=== PATIENT | female | born 1975 | race Native Hawaiian/Other Pacific Islander ===

== ENCOUNTER 2017-12-28 13:00 | Oncology outpatient (ONC) | payer OTHER, SELFPAY ==
[2017-09-15 13:07] VITALS: BP 147/97; PULSE 95; RESP 18; TEMP 36.8
[2017-09-15] MEDS: LEUPROLIDE 3.75 MG IM (13:16)
[2017-10-20] MEDS: LEUPROLIDE 3.75 MG IM (11:04)
[2017-10-20 11:05] VITALS: BP 106/76; PULSE 73; RESP 16; TEMP 36.9; O2SAT 97
[2017-11-16] MEDS: LEUPROLIDE 3.75 MG IM (11:29)
[2017-11-16 11:35] VITALS: BP 149/89; PULSE 74; RESP 14; TEMP 36.8; O2SAT 100
--- NOTE | 2017-11-16 11:41 | PC.NURSE ---
Sylvia comes in for Lupron monthly. Denies any problems. Injection tolerated without any ill effects.
[2017-12-28] MEDS: LEUPROLIDE 3.75 MG IM (13:36)
== END 2017-12-29 12:00 ==
PROVIDERS: PCP Nurse Practitioner Family
DX: N80.9 Endometriosis, unspecified (principal)
CPT/HCPCS: 96372; J1950

== ENCOUNTER → 2018-01-03 09:36 | Outpatient (CLI) | payer OTHER, SELFPAY | DX: Z13.820 Encounter for screening for osteoporosis (principal); M85.851 Other specified disorders of bone density and structure, right thigh | CPT/HCPCS: 77080 ==

== ENCOUNTER 2018-01-19 08:54 | Oncology outpatient (ONC) | payer OTHER, SELFPAY ==
[2018-01-19 09:21] VITALS: BP 104/69; PULSE 71; RESP 16; TEMP 36.8; O2SAT 96
[2018-01-19] MEDS: LEUPROLIDE 3.75 MG IM (09:26)
== END 2018-02-01 13:25 ==
LOC: ONC 08:54
DX: N80.9 Endometriosis, unspecified (principal)
CPT/HCPCS: 96372; J1950

== ENCOUNTER 2018-03-01 14:55 | Emergency (ER) | payer OTHER, SELFPAY ==
[2018-03-01 15:10] VITALS: BP 126/85; PULSE 90; RESP 16; TEMP 36.9; O2SAT 98; BMI 21.1
[2018-03-01 15:43] LABS: INR 0.9 (0.9-1.3); Prothrombin Time 10.6 SECONDS (10.1-12.7)
--- NOTE | 2018-03-01 15:44 | ED.ABDPAIN ---
HPI - Abdominal Pain General Chief Complaint: Abdominal Pain Stated Complaint: RT LOWER ABD PAIN Time Seen by Provider: 03/01/18 15:42 Source: patient Mode of arrival: ambulatory Limitations: no limitations History of Present Illness HPI narrative: This 42-year-old female comes to ED due to worsening right-sided abdominal pain. She states she woke up this morning with pain and has progressively worsened throughout the day. She describes it as sharp, constant, worse with being up and walking, better with being still and bending forward. She denies any nausea or vomiting. She denies any urinary symptoms or hematuria. She had a normal bowel movement this morning. She denies any fever, chills, sweats. She denies any chest pain, dyspnea, recent illness or upper respiratory symptoms. No known exposures. She has been eating and drinking normally today. She does have a history of kidney stones but this does not feel typical Related Data Home Medications Medication Instructions Recorded Confirmed cetirizine 5 mg PO QDAY PRN #0 08/17/12 03/01/18 leuprolide [Lupron Depot] 3.75 mg IM QMONTH 03/01/18 03/01/18 zolpidem 5 mg PO BEDTIME PRN 03/01/18 03/01/18 Previous Rx's Medication Instructions Recorded alendronate 70 mg tablet 70 mg PO QWEEK #12 tab 01/18/18 sulfamethoxazole-trimethoprim 1 tab PO Q12H #14 tab 03/01/18 [Bactrim DS] Allergies Allergy/AdvReac Type Severity Reaction Status Date / Time Penicillins [PENICILLINS] Allergy Severe HIVES/ANAPH Verified 03/01/18 16:48 YLAXIS Review of Systems Review of Systems All systems reviewed & are unremarkable except as noted in HPI and below PFSH Medical History Endometriosis determined by laparoscopy (Chronic) Seasonal allergies (Chronic) Social History household members: spouse Smoking Status: Current some day smoker Comment: social EtOH and tobacco, no street drugs Exam Narrative Exam Narrative: GENERAL APPEARANCE: Patient lying supine, appears a bit uncomfortable but in NAD HEENT: PERRL, EOMI, no scleral icterus NECK: Supple LUNGS: Clear to auscultation bilaterally. HEART: Rate and rhythm regular, normal S1 and S2, no S3 or S4. ABDOMEN: Soft, nondistended, bowel sounds present x 4 quadrants, no masses palpable, no hepatosplenomegaly. tender over the right mid to lower quadrants including McBurney's point and right lateral pelvis. Less tender over the right upper quadrant. Also right CVAT. No left-sided tenderness. No guarding or rebound. EXTREMITIES: No edema, no cyanosis DERMATOLOGIC: No jaundice or exanthem NEUROLOGIC: Alert and oriented with normal speech and coordination : normal external genitalia, moderate right adenexal region tenderness, no palable ovarian mass, ligaments/vasculature on that side slightly more prominant than L. on palpation, no CMT Initial Vital Signs Initial Vital Signs: Vital Signs Temperature 98.5 F 03/01/18 15:10 Pulse Rate 90 03/01/18 15:10 Respiratory Rate 16 03/01/18 15:10 Blood Pressure 126/85 03/01/18 15:10 Pulse Oximetry 98 03/01/18 15:10 Course Additional Information: the patient is feeling significantly improved in terms of her pain, able to ambulate. Reviewed lab work and imaging studies which do not show acute findings. Advised follow-up probable liver hemangioma. Advised that she could have type of pelvic congestion syndrome although sudden onset of her symptoms are not quite typical for this. I advised her that she needs to return if any acutely worsening pain or new symptoms such as vomiting or fever, and she is agreeable. Also advised following up with PCP tomorrow so that we can get serial examinations, and she is agreeable. Orders Ordered: ED Orders 03/01/18 15:17 Complete Blood Count AUTO DIFF Stat Comprehensive Metabolic Panel Stat Lipase Stat Partial Thromboplastin Time Stat Prothrombin Time INR Stat 03/01/18 15:20 Urine Culture Stat Urine Microscopic Stat 03/01/18 15:57 CT abdomen pelvis w con Stat 03/01/18 16:34 C-Reactive Protein Quant Stat Lactate (Lactic Acid) Stat Discontinued Medications Acetaminophen (Tylenol) 650 mg PO Q4HR PRN PRN Reason: As Needed for Fever/Mild Pain Last Admin: 03/01/18 16:09 Dose: 650 mg Sodium Chloride (Normal Saline 0.9%) 1,000 mls @ 1,000 mls/hr IV BOLUS ONE Stop: 03/01/18 16:56 Last Infusion: 03/01/18 17:05 Dose: 0 mls/hr Admin: 03/01/18 16:09 Dose: 1,000 mls/hr Ketorolac Tromethamine (Toradol) 15 mg IV NOW ONE Stop: 03/01/18 16:37 Last Admin: 03/01/18 16:49 Dose: 15 mg Morphine Sulfate (Morphine) 4 mg IV NOW ONE Stop: 03/01/18 16:37 Last Admin: 03/01/18 16:49 Dose: 4 mg Trimethoprim/Sulfamethoxazole (Bactrim Ds) 1 tab PO NOW ONE Stop: 03/01/18 17:53 Last Admin: 03/01/18 18:16 Dose: 1 tab Vital Signs - 8 hr 03/01/18 15:10 03/01/18 17:56 Temperature 98.5 F 97.9 F Pulse Rate 90 71 Respiratory Rate 16 18 Blood Pressure 126/85 Blood Pressure [Right Arm] 116/69 Pulse Oximetry 98 99 MDM - Abdominal Pain Lab Data Result diagrams: 03/01/18 15:17 03/01/18 15:17 Lab Results 03/01/18 03/01/18 03/01/18 Range/Units 15:17 15:17 15:17 WBC 15.0 H (4.5-11.0) X10^3/uL RBC 4.17 (4.0-5.2) X10^6/uL Hgb 13.5 (12.0-16.0) g/dL Hct 40.3 (36-46) % MCV 96.6 (80-100) fL MCH 32.3 (26-34) PG MCHC 33.5 (30-36) % RDW 13.3 (11.6-14.8) % Plt Count 316 (150-400) X10^3/uL Neut % (Auto) 65.8 (50-75) % Lymph % (Auto) 21.8 L (25-40) % [place]ata[place]oula % (Auto) 9.5 (3-14) % Eos % (Auto) 1.9 L (2-4) % Baso % (Auto) 1.0 (0-2) % Neut # (Auto) 9900 H (0327-1837) /uL PT 10.6 (10.1-12.7) SECONDS INR 0.9 (0.9-1.3) APTT 36 (26.4-36.2) SECONDS Sodium 143 (137-145) mmol/L Potassium 4.0 (3.4-5.1) mmol/L Chloride 105 (98-107) mmol/L Carbon Dioxide 26 (22-32) mmol/L BUN 18 H (7-17) mg/dL Creatinine 0.90 (0.52-1.04) mg/dL Estimated GFR > 60.0 (>60) mL/min BUN/Creatinine Ratio 20.0 (6-22) Glucose 87 (70-100) mg/dL Lactate (0.7-2.1) mmol/L Calcium 9.3 (8.4-10.2) mg/dL Total Bilirubin 0.4 (0.2-1.3) mg/dL AST 28 (14-36) IU/L ALT 27 (9-52) IU/L Alkaline Phosphatase 50 (38-126) U/L C-Reactive Protein (<1.0) mg/dL Total Protein 7.5 (6.3-8.2) g/dL Albumin 4.5 (3.5-5.0) g/dL Globulin 3.0 (1.7-4.1) g/dL Albumin/Globulin Ratio 1.5 (1.0-2.8) Lipase 52 (23-300) U/L Urine RBC (0-5/HPF) Urine WBC (0-5/HPF) Ur Squamous Epith Cells Amorphous Sediment Urine Bacteria (None) Urine Mucus (Negative) Ur Culture Indicated? Micro UA Comment 03/01/18 03/01/18 03/01/18 Range/Units 15:20 16:34 16:34 WBC (4.5-11.0) X10^3/uL RBC (4.0-5.2) X10^6/uL Hgb (12.0-16.0) g/dL Hct (36-46) % MCV (80-100) fL MCH (26-34) PG MCHC (30-36) % RDW (11.6-14.8) % Plt Count (150-400) X10^3/uL Neut % (Auto) (50-75) % Lymph % (Auto) (25-40) % [place]oula % (Auto) (3-14) % Eos % (Auto) (2-4) % Baso % (Auto) (0-2) % Neut # (Auto) (2260-2902) /uL PT (10.1-12.7) SECONDS INR (0.9-1.3) APTT (26.4-36.2) SECONDS Sodium (137-145) mmol/L Potassium (3.4-5.1) mmol/L Chloride (98-107) mmol/L Carbon Dioxide (22-32) mmol/L BUN (7-17) mg/dL Creatinine (0.52-1.04) mg/dL Estimated GFR (>60) mL/min BUN/Creatinine Ratio (6-22) Glucose (70-100) mg/dL Lactate 0.5 L (0.7-2.1) mmol/L Calcium (8.4-10.2) mg/dL Total Bilirubin (0.2-1.3) mg/dL AST (14-36) IU/L ALT (9-52) IU/L Alkaline Phosphatase (38-126) U/L C-Reactive Protein 0.7 (<1.0) mg/dL Total Protein (6.3-8.2) g/dL Albumin (3.5-5.0) g/dL Globulin (1.7-4.1) g/dL Albumin/Globulin Ratio (1.0-2.8) Lipase (23-300) U/L Urine RBC 1-5/hpf (0-5/HPF) Urine WBC 5-10/hpf H (0-5/HPF) Ur Squamous Epith Cells 1-5 /hpf Amorphous Sediment 1+ Urine Bacteria Few (2-10) H (None) Urine Mucus 2+ H (Negative) Ur Culture Indicated? Specimen cultured Micro UA Comment Not Reportable Point of care testing: Point of Care Testing Test Results Negative Urine Dip Bedside Urine Glucose Negative Bedside Urine Bilirubin - Negative Bedside Urine Ketone - Negative Urine Specific Ma[place] 1.030 Bedside Urine Occult Blood +++ Bedside Urine pH 6.0 Bedside Urine Protein - Negative Bedside Urine Urobilinogen - Negative Bedside Urine Nitrite - Negative Bedside Urine Leukocytes - Negative Esterase Imaging Data CT scan - abdomen: Radiologist's impression: [address] [address] [address] Scan Report Signed Patient: Sylvia Larson FMR#: [id number] : 1975Acct:[id number] Age/Sex: 42 / FDate of Service: 03/01/18 Loc: ED Accession Number: [id number] Procedure: CT abdomen pelvis w con Ordering Provider: Kimberly Mitchell P.A-C PROCEDURE: CT ABDOMEN PELVIS W CON INDICATIONS: R. flank and R. side pain TECHNIQUE: After the administration of oral and intravenous contrast, 5 mm thick sections acquired from the diaphragms to the symphysis. 5 mm thick coronal and sagittal reformats were performed. For radiation dose reduction, the following was used: automated exposure control, adjustment of mA and/or kV according to patient size. COMPARISON: None. FINDINGS: Image quality: Diagnostic. ABDOMEN: Lung bases: Lung bases are clear. Heart size is normal. Solid organs: The liver is hypodense and diffusely heterogeneous when compared to the spleen. There are 2 dominant cysts identified within the liver. The largest appears to be thinly septated and measures 3.3 x 3.6 cm on the posterior segment of the right hepatic lobe (image 15, series 2). A smaller hypodense structure with peripheral enhancement is identified involving the medial segment of the left hepatic lobe that measures 2.2 x 2.3 cm (image 8, series 2). There is an adjacent focal nodular area of enhancement that measures up to 9 mm in diameter adjacent to this cyst. The gallbladder is not enlarged or inflamed. No intrahepatic or extrahepatic biliary dilatation is evident. A prominent Sergio's lobe is noted. The spleen, pancreas, and adrenals are within normal limits. The kidneys are also within normal limits without hydronephrosis or definite renal calculi. Peritoneum and bowel: The stomach appears to be within normal limits. Mild focal prominence of the wall of the body/antrum of the stomach probably is related to focal peristalsis/contraction. The duodenum is unremarkable. The small bowel loops are nondilated. The appendix is well-visualized (image 24, series 4, image 61, series 2). Appendix is normal in size without surrounding inflammation. Moderate residual stool is seen within the colon. There may be mild distal colonic diverticulosis without surrounding inflammation to suggest diverticulitis. No free fluid, loculated fluid collection or free air is identified. Nodes and vessels: No retroperitoneal or mesenteric adenopathy. Aorta and inferior vena cava are normal in caliber. Bones: No fractures or suspicious osseous lesions are identified. PELVIS: Genitourinary: Bladder wall thickness is normal. The uterus is normal in size. The ovaries are not definitely seen, but do not appear to be enlarged. There is a prominent calcification identified along the fundal portion of the uterus, likely representing a calcified uterine fibroid. Prominent parametrial vessels are incidentally noted. No large ovarian cysts are evident. Miscellaneous: No inguinal hernias or adenopathy. No free fluid or loculated fluid collection is evident. Bones: No suspicious bony lesions. No vertebral body compression fractures. IMPRESSION: 1. No acute abnormality is appreciated within the abdomen or pelvis. 2. Normal appendix. 3. No definite ovarian cysts. 4. Hepatic lesions are not well evaluated. At least one what likely represents a simple hepatic cyst with thin septations within the right hepatic lobe. The lesion within the left hepatic lobe probably represents a hemangioma. A dedicated liver MRI with contrast is recommended for further evaluation. 5. Calcified uterine fibroid. 6. Multiple prominent parametrial vessels are please correlate clinically to exclude pelvic congestion syndrome. 7. Mild distal colonic diverticulosis without diverticulitis. There is no bowel obstruction. Dictated by: Jonathan Kerr M.D. on 03/01/2018 at 16:15 Approved by: Jonathan Kerr M.D. on 03/01/2018 at 16:23 Discharge Plan Departure Patient Disposition: Home Clinical Impression: Right sided abdominal pain Discharge Date/Time: 03/01/18 18:30 Interventions: ED Discharge Assessment Last Done: 03/01/18 18:30 Instructions: DI for Abdominal Pain-Adult Activity Restrictions/Additional Instructions: the exact source of your pain was not clear today. It did look like you had some congestion in the pelvic muscles on your CT scan, but I am not convinced that this was the source of your pain. Your the scan did not show any acute surgical issue in your abdomen such as appendicitis or gallbladder problem, nor did it show a new kidney stone. As we talked about, it is vital that you return if you have any acutely worsening symptoms, or new symptoms such as protracted vomiting or fever. Otherwise, you can rest at home tonight, and please call your PCP office 1st thing in the morning and let them know you were seen in the emergency room and need to follow up tomorrow. We like to follow up on abdominal pain with repeat exams the next day. We will treat you for a urinary/ kidney infection as there is a little bit of bacteria in her urine, but your pain is not quite typical for this either. Please pickler helper the additional antibiotic that I have sent to your pharmacy 1st thing tomorrow morning or tonight so that you can take the 2nd dose in the morning and continue this while urine cultures are pending. Prescriptions: New sulfamethoxazole-trimethoprim [Bactrim DS] 800-160 mg tablet 1 tab PO Q12H Qty: 14 RF: 0 No Action cetirizine 10 MG tablet 5 mg PO QDAY PRN (Reason: Allergy Symptoms) Qty: 0 RF: 0 alendronate [Fosamax] 70 mg tablet 70 mg PO QWEEK Qty: 12 RF: 3 zolpidem 5 mg tablet 5 mg PO BEDTIME PRN (Reason: Insomnia) RF: 0 leuprolide [Lupron Depot] 3.75 mg Syringe Kit 3.75 mg IM QMONTH RF: 0 Referrals: Gabbie Pfeiffer ARNP [Primary Care Provider] -
[2018-03-01 15:45] LABS: PTT Partial Thromboplastin Tim 36 SECONDS (26.4-36.2)
[2018-03-01 15:47] LABS: Amorphous Sediment Urine 1+; Bacteria Urine Few (2-10); Mucus Urine 2+ (Negative); RBC Urine 1-5/HPF (0-5/HPF); Squamous Epithelial Cell Urine 1-5 /HPF; WBC Urine 5-10/HPF (0-5/HPF)
[2018-03-01 15:48] LABS: Add Manual Diff / Slide Review NO; Eosinophils Percent Auto 1.9 % (2-4); Hematocrit 40.3 % (36-46); Hemoglobin 13.5 g/dL (12.0-16.0); Lymphocytes Percent Auto 21.8 % (25-40); Mean Corpuscular HGB Conc 33.5 % (30-36); Mean Corpuscular Hemoglobin 32.3 PG (26-34); Mean Corpuscular Volume 96.6 fL (80-100); Monocytes Percent Auto 9.5 % (3-14); Neutrophils Absolute Auto 9900 /uL (3000-5900); Neutrophils Percent Auto 65.8 % (50-75); Platelet Count 316 X10^3/uL (150-400); Red Blood Cell Count 4.17 X10^6/uL (4.0-5.2); Red Cell Distribution Width 13.3 % (11.6-14.8)
[2018-03-01 15:48] LABS: Culture Indicated Urine Specimen Cultured
[2018-03-01 15:49] LABS: Alanine Aminotransferase 27 IU/L (9-52); Albumin 4.5 g/dL (3.5-5.0); Albumin Globulin Ratio 1.5 (1.0-2.8); Alkaline Phosphatase 50 U/L (38-126); Aspartate Aminotransferase 28 IU/L (14-36); Bilirubin Total 0.4 mg/dL (0.2-1.3); Blood Urea Nitrogen 18 mg/dL (7-17); Calcium 9.3 mg/dL (8.4-10.2); Carbon Dioxide 26 mmol/L (22-32); Chloride 105 mmol/L (98-107); Estimated Glomerular Filt Rate > 60.0 mL/min (>60); Glucose 87 mg/dL (70-100); HEMOLYSIS < 15 (0-50); Lipase 52 U/L (23-300); Sodium 143 mmol/L (137-145); Total Protein 7.5 g/dL (6.3-8.2)
--- NOTE | 2018-03-01 15:57 | DI.CT.S_ITS ---
PROCEDURE: CT ABDOMEN PELVIS W CON INDICATIONS: R. flank and R. side pain TECHNIQUE: After the administration of oral and intravenous contrast, 5 mm thick sections acquired from the diaphragms to the symphysis. 5 mm thick coronal and sagittal reformats were performed. For radiation dose reduction, the following was used: automated exposure control, adjustment of mA and/or kV according to patient size. COMPARISON: None. FINDINGS: Image quality: Diagnostic. ABDOMEN: Lung bases: Lung bases are clear. Heart size is normal. Solid organs: The liver is hypodense and diffusely heterogeneous when compared to the spleen. There are 2 dominant cysts identified within the liver. The largest appears to be thinly septated and measures 3.3 x 3.6 cm on the posterior segment of the right hepatic lobe (image 15, series 2). A smaller hypodense structure with peripheral enhancement is identified involving the medial segment of the left hepatic lobe that measures 2.2 x 2.3 cm (image 8, series 2). There is an adjacent focal nodular area of enhancement that measures up to 9 mm in diameter adjacent to this cyst. The gallbladder is not enlarged or inflamed. No intrahepatic or extrahepatic biliary dilatation is evident. A prominent Sergio's lobe is noted. The spleen, pancreas, and adrenals are within normal limits. The kidneys are also within normal limits without hydronephrosis or definite renal calculi. Peritoneum and bowel: The stomach appears to be within normal limits. Mild focal prominence of the wall of the body/antrum of the stomach probably is related to focal peristalsis/contraction. The duodenum is unremarkable. The small bowel loops are nondilated. The appendix is well-visualized (image 24, series 4, image 61, series 2). Appendix is normal in size without surrounding inflammation. Moderate residual stool is seen within the colon. There may be mild distal colonic diverticulosis without surrounding inflammation to suggest diverticulitis. No free fluid, loculated fluid collection or free air is identified. Nodes and vessels: No retroperitoneal or mesenteric adenopathy. Aorta and inferior vena cava are normal in caliber. Bones: No fractures or suspicious osseous lesions are identified. PELVIS: Genitourinary: Bladder wall thickness is normal. The uterus is normal in size. The ovaries are not definitely seen, but do not appear to be enlarged. There is a prominent calcification identified along the fundal portion of the uterus, likely representing a calcified uterine fibroid. Prominent parametrial vessels are incidentally noted. No large ovarian cysts are evident. Miscellaneous: No inguinal hernias or adenopathy. No free fluid or loculated fluid collection is evident. Bones: No suspicious bony lesions. No vertebral body compression fractures. IMPRESSION: 1. No acute abnormality is appreciated within the abdomen or pelvis. 2. Normal appendix. 3. No definite ovarian cysts. 4. Hepatic lesions are not well evaluated. At least one what likely represents a simple hepatic cyst with thin septations within the right hepatic lobe. The lesion within the left hepatic lobe probably represents a hemangioma. A dedicated liver MRI with contrast is recommended for further evaluation. 5. Calcified uterine fibroid. 6. Multiple prominent parametrial vessels are please correlate clinically to exclude pelvic congestion syndrome. 7. Mild distal colonic diverticulosis without diverticulitis. There is no bowel obstruction. Dictated by: Jonathan Kerr M.D. on 03/01/2018 at 16:15 Approved by: Jonathan Kerr M.D. on 03/01/2018 at 16:23
[2018-03-01] MEDS: ACETAMINOPHEN 325 MG TABLET 650 MG PO (16:09)
[2018-03-01] MEDS: SODIUM CHLORIDE 0.9% 1,000 ML 1000 ML IV (16:09)
[2018-03-01] MEDS: MORPHINE 4 MG/ML INJ IV (16:49)
[2018-03-01] MEDS: KETOROLAC 60 MG/2 ML VIAL 15 MG IV (16:49)
[2018-03-01 16:52] LABS: Lactate (Lactic Acid) 0.5 mmol/L (0.7-2.1)
[2018-03-01 16:55] LABS: C-Reactive Protein Quant 0.7 mg/dL (<1.0)
[2018-03-01 17:56] VITALS: BP 116/69; PULSE 71; RESP 18; TEMP 36.6; O2SAT 99
[2018-03-01] MEDS: TRIMETH/SULFA 160/800 (DS) TABLET 1 TAB PO (18:16)
== END 2018-03-01 18:30 | disposition home or self-care (01) ==
PROVIDERS: Emergency Medicine; Emergency Provider Internal Medicine; Family Provider Nurse Practitioner Family; PCP Nurse Practitioner Family
DX: R10.9 Unspecified abdominal pain (principal)
CPT/HCPCS: 36415; 36591; 74177; 80053; 81003; 81015; 81025; 83605; 83690; 85025; 85610; 85730; 86140; 87086; 96361; 96374; 96375; 96376; 99283; 99285; J1885; J2270

== ENCOUNTER → 2019-08-07 11:09 | Outpatient (CLI) | payer OTHER, SELFPAY ==
--- NOTE | 2019-08-07 | DI.RAD.S_ITS ---
PROCEDURE: XR CHEST 2V INDICATIONS: Chest pain, dysphagia TECHNIQUE: 2 views of the chest were acquired. COMPARISON: None. FINDINGS: Surgical changes and devices: None. Lungs and pleura: Lungs are clear. No pleural effusions or pneumothorax. Mediastinum: Mediastinal contours are normal. Heart size is normal. Bones and chest wall: No suspicious bony abnormalities. Soft tissues appear unremarkable. IMPRESSION: Normal for age, source of current chest pain and dysphagia symptoms is not seen. Dictated by: Matthieu Chan M.D. on 08/07/2019 at 12:31 Approved by: Matthieu Chan M.D. on 08/07/2019 at 12:31
== END ==
PROVIDERS: Family Provider Nurse Practitioner Family; PCP Nurse Practitioner Family; Referring Provider Nurse Practitioner Family; Visit Provider Nurse Practitioner Family
DX: R07.9 Chest pain, unspecified (principal); R09.89 Other specified symptoms and signs involving the circulatory and respiratory systems; R13.10 Dysphagia, unspecified
CPT/HCPCS: 71046

== ENCOUNTER → 2019-08-21 13:48 | Outpatient (CLI) | payer OTHER, SELFPAY ==
--- NOTE | 2019-08-21 | DI.RAD.S_ITS ---
PROCEDURE: XR LUMBAR SPINE 2-3V INDICATIONS: LBP,ABD PAIN,HEMATURA TECHNIQUE: 3 views of the lumbar spine were acquired. COMPARISON: None. FINDINGS: Bones: 5 [id number] vertebrae are present. There is normal bony alignment. No vertebral body compression fractures. No suspicious bony lesions. Soft tissues: Overlying bowel gas pattern is normal. No suspicious soft tissue calcifications. IMPRESSION: No radiographic abnormalities. Dictated by: Krysten Kim M.D. on 08/21/2019 at 17:11 Approved by: Krysten Kim M.D. on 08/21/2019 at 17:11
--- NOTE | 2019-08-21 | DI.RAD.S_ITS ---
PROCEDURE: XR ABDOMEN MIN 2V INDICATIONS: LBP,ABD PAIN,HEMATURA TECHNIQUE: 2 views of the abdomen were acquired. COMPARISON: None. FINDINGS: Surgical changes and devices: None. Bowel: No pneumoperitoneum. The bowel gas pattern is normal. Soft tissues: No masses; visualized solid organ contours appear normal in size. No suspicious abdominal calcifications. Calcified fibroid and pelvic phleboliths are present. Bones: No suspicious bony abnormalities. IMPRESSION: No suspicious calcifications projected over the expected location of the kidneys to suggest nephrolithiasis or ureterolithiasis. Dictated by: Krysten Kim M.D. on 08/21/2019 at 17:10 Approved by: Krysten Kim M.D. on 08/21/2019 at 17:11
== END ==
PROVIDERS: Family Provider Nurse Practitioner Family; PCP Nurse Practitioner Family; Referring Provider Nurse Practitioner Family; Visit Provider Nurse Practitioner Family
DX: R31.9 Hematuria, unspecified (principal); M54.5 Low back pain; R10.9 Unspecified abdominal pain
CPT/HCPCS: 72100; 74019

== ENCOUNTER → 2019-09-10 15:12 | Outpatient (CLI) | payer OTHER, SELFPAY | PROVIDERS: Family Provider Nurse Practitioner Family; PCP Internal Medicine | DX: Z13.820 Encounter for screening for osteoporosis (principal); M85.852 Other specified disorders of bone density and structure, left thigh; F17.200 Nicotine dependence, unspecified, uncomplicated; Z82.62 Family history of osteoporosis | CPT/HCPCS: 77080 ==

== ENCOUNTER → 2020-01-03 11:35 | Outpatient (CLI) | payer OTHER, SELFPAY ==
[2020-01-03 14:02] LABS: Alanine Aminotransferase 14 IU/L (<35); Albumin 4.2 g/dL (3.5-5.0); Albumin Globulin Ratio 1.6 (1.0-2.8); Alkaline Phosphatase 47 U/L (38-126); Aspartate Aminotransferase 22 IU/L (14-36); BUN Creatinine Ratio 10.5 (6-22); Bilirubin Total 0.3 mg/dL (0.2-1.3); Blood Urea Nitrogen 8 mg/dL (7-17); Carbon Dioxide 28 mmol/L (22-32); Chloride 105 mmol/L (98-107); Estimated Glomerular Filt Rate > 60.0 mL/min (>60); Globulin 2.7 g/dL (1.7-4.1); Glucose 92 mg/dL (70-100); HEMOLYSIS < 15 (0-50); Potassium 4.2 mmol/L (3.4-5.1); Sodium 138 mmol/L (137-145); Total Protein 6.9 g/dL (6.3-8.2)
== END ==
PROVIDERS: Family Provider Nurse Practitioner Family; PCP Registered Nurse; Referring Provider Registered Nurse; Visit Provider Registered Nurse
DX: M85.851 Other specified disorders of bone density and structure, right thigh (principal); N80.9 Endometriosis, unspecified
CPT/HCPCS: 36415; 80053

== ENCOUNTER → 2020-06-06 09:21 | Outpatient (CLI) | payer OTHER, SELFPAY ==
[2020-06-06 10:27] LABS: Add Manual Diff / Slide Review NO; Basophils Absolute Auto 100 /uL (0-100); Basophils Percent Auto 0.7 % (0-2); Eosinophils Absolute Auto 200 /uL (0-450); Eosinophils Percent Auto 2.3 % (2-4); Hematocrit 40.1 % (36-46); Hemoglobin 13.5 g/dL (12.0-16.0); Lymphocytes Absolute Auto 1800 /uL (1100-4500); Lymphocytes Percent Auto 20.6 % (25-40); Mean Corpuscular HGB Conc 33.7 % (30-36); Mean Corpuscular Hemoglobin 31.7 PG (26-34); Mean Corpuscular Volume 94.3 fL (80-100); Monocytes Absolute Auto 800 /uL (0-900); Monocytes Percent Auto 8.5 % (3-14); Neutrophils Absolute Auto 6000 /uL (1500-7000); Neutrophils Percent Auto 67.9 % (50-75); Platelet Count 332 X10^3/uL (150-400); Red Blood Cell Count 4.25 X10^6/uL (4.0-5.2); Red Cell Distribution Width 13.7 % (11.6-14.8); White Blood Cell Count 8.9 X10^3/uL (4.5-11.0)
[2020-06-06 10:34] LABS: Cholesterol 193 mg/dL (140-199); HDL Cholesterol 71 mg/dL (40-60); LDL Cholesterol Calculated 106 mg/dL (<100); Triglycerides 78 mg/dL (35-150)
== END ==
PROVIDERS: Family Provider Nurse Practitioner Family; PCP Registered Nurse; Referring Provider Registered Nurse; Visit Provider Registered Nurse
DX: N92.0 Excessive and frequent menstruation with regular cycle (principal); N92.6 Irregular menstruation, unspecified; Z13.220 Encounter for screening for lipoid disorders
CPT/HCPCS: 36415; 80061; 85025

== ENCOUNTER → 2021-07-26 09:50 | Outpatient (CLI) | payer OTHER, SELFPAY ==
[2021-07-26 11:28] LABS: Hematocrit 39.2 % (36-46); Hemoglobin 13.7 g/dL (12.0-16.0); Mean Corpuscular HGB Conc 34.8 % (30-36); Mean Corpuscular Hemoglobin 32.4 PG (26-34); Mean Corpuscular Volume 93.1 fL (80-100); Platelet Count 327 X10^3/uL (150-400); Red Blood Cell Count 4.21 X10^6/uL (4.0-5.2); Red Cell Distribution Width 13.6 % (11.6-14.8); White Blood Cell Count 8.8 X10^3/uL (4.5-11.0)
[2021-07-26 11:45] LABS: HEMOLYSIS < 15 (0-50); Potassium 4.2 mmol/L (3.4-5.1)
[2021-07-26 11:47] LABS: Alanine Aminotransferase 22 IU/L (<35); Albumin 4.6 g/dL (3.5-5.0); Albumin Globulin Ratio 1.4 (1.0-2.8); Alkaline Phosphatase 61 U/L (38-126); Aspartate Aminotransferase 28 IU/L (14-36); BUN Creatinine Ratio 13.9 (6-22); Bilirubin Total 0.5 mg/dL (0.2-1.3); Blood Urea Nitrogen 11 mg/dL (7-17); Calcium 8.8 mg/dL (8.4-10.2); Carbon Dioxide 22 mmol/L (22-32); Chloride 108 mmol/L (98-107); Cholesterol 181 mg/dL (140-199); Estimated Glomerular Filt Rate > 60 mL/min (>60); Globulin 3.2 g/dL (1.7-4.1); Glucose 104 mg/dL (70-100); HDL Cholesterol 73 mg/dL (40-60); LDL Cholesterol Calculated 81 mg/dL (<100); Sodium 139 mmol/L (137-145); Total Protein 7.8 g/dL (6.3-8.2); Triglycerides 135 mg/dL (35-150)
[2021-07-26 12:02] LABS: Follicle Stimulating Hormone 3.21 mIU/mL
[2021-07-26 12:41] LABS: Free T3, Triiodothyronine Free 2.83 pg/mL (2.77-5.27); Free T4, Direct Thyroxine 1.09 ng/dL (0.78-2.19)
[2021-07-26 12:55] LABS: Thyroid Stimulating Hormone 1.76 uIU/mL (0.47-4.68)
== END ==
PROVIDERS: Family Provider Nurse Practitioner Family; PCP Nurse Practitioner; Referring Provider Nurse Practitioner; Visit Provider Nurse Practitioner
DX: Z00.00 Encounter for general adult medical examination without abnormal findings (principal); N91.2 Amenorrhea, unspecified
CPT/HCPCS: 36415; 80053; 80061; 83001; 84439; 84443; 84481; 85027

== ENCOUNTER → 2021-11-05 15:39 | Outpatient (CLI) | payer OTHER, SELFPAY ==
--- NOTE | 2021-11-05 15:41 | DI.MG.S_ITS ---
BILATERAL DIGITAL SCREENING MAMMOGRAM 3D/2D WITH CAD: 11/05/2021 CLINICAL: Routine screening. Baseline exam. No prior exams were available for comparison. The tissue of both breasts is heterogeneously dense. This may lower the sensitivity of mammography. Current study was also evaluated with a Computer Aided Detection (CAD) system. No significant masses, calcifications, or other findings are seen in either breast. IMPRESSION: NEGATIVE There is no mammographic evidence of malignancy. A 1 year screening mammogram is recommended. Based on the Tyrer Cuzick model (a risk assessment model) the patient's lifetime risk is 10.9% and her 10 year risk is 2.1%. According to the ACR, ACS, and NCCN guidelines, an annual breast MRI exam along with mammogram is recommended if the patient's lifetime risk is 20% or greater. This exam was interpreted at Station ID: [id number]. NOTE: For mammograms, a report in lay terms will be sent to the patient. Approximately 15% of breast malignancies will not be visualized mammographically. In the management of a palpable breast mass, a negative mammogram must not discourage biopsy of a clinically suspicious lesion. Electronically Signed By: Obdulio goode/saad:11/06/2021 16:21:30 letter sent: Normal Exam ACR BI-RADS Category 1: Negative [id number]
== END ==
PROVIDERS: Family Provider Nurse Practitioner Family; PCP Nurse Practitioner; Referring Provider Nurse Practitioner; Visit Provider Nurse Practitioner
DX: Z12.31 Encounter for screening mammogram for malignant neoplasm of breast (principal)
CPT/HCPCS: 77063; 77067

== ENCOUNTER → 2021-12-09 09:19 | Outpatient (CLI) | payer OTHER, SELFPAY ==
[2021-12-09 11:35] LABS: COVID19 -Nasal RAPID Negative (Negative)
== END ==
PROVIDERS: Family Provider Nurse Practitioner Family; PCP Nurse Practitioner; Visit Provider Surgery
DX: Z01.812 Encounter for preprocedural laboratory examination (principal); Z20.822 Contact with and (suspected) exposure to COVID-19
CPT/HCPCS: 87635; C9803

== ENCOUNTER 2021-12-10 08:23 | Day surgery (SDC) | payer OTHER, SELFPAY ==
[2021-12-10] MEDS: LACTATED RINGERS 1,000 ML 100 ML IV (08:53)
[2021-12-10 09:00] VITALS: BP 120/88; PULSE 90; RESP 16; TEMP 36.4; O2SAT 98; BMI 24.4
--- NOTE | 2021-12-10 11:01 | PM.HP.1 ---
History of Present Illness History of Present Illness Date Patient Seen: 12/10/21 Time Patient Seen: 11:01 Chief complaint: Colonoscopy Narrative: colon cancer screening, last scope 2019 when polyps were found So patient has family history of colon cancer in her mother, and self history of colon polyps Patient History Medical History Alopecia (~2005) Anxiety (~2012) Endometriosis determined by laparoscopy (~2012) Fibroids (~2005) Hematuria (~2014) Kidney stones (~2014) Lower back pain Migraines (~1996) Seasonal allergies Surgical History Anesthesia History of colonoscopy (~2017) History of endoscopy (~2013) History of laparoscopy (~2013) Family & Social History Family History Father Gout Kidney disease Mother Colon cancer Diabetes mellitus Social History: household members spouse Tobacco & Substance use: Tobacco type cigarettes Smoking Status Current every day smoker alcohol intake current alcohol intake frequency a few times a week Substance Use Type does not use Meds Home Medications and Allergies Home Medications Medication Instructions Recorded Confirmed Type epinephrine 0.3 mg/0.3 mL 0.3 mg (0.3 mL) IM ONCE #2 ea 07/26/21 11/22/21 Rx injection, auto-injector zolpidem 5 mg tablet 5 mg PO BEDTIME PRN insomnia #30 09/01/21 11/22/21 Rx tabs TENS Unit #1 ea 10/27/21 11/22/21 Rx baclofen 10 mg tablet 10 mg PO BID PRN back muscle 10/27/21 11/22/21 Rx spasms #60 tabs ketorolac 60 mg/2 mL intramuscular 60 mg (2 mL) IM .Weekly PRN pain 11/10/21 11/22/21 Rx solution #2 mL Allergies Allergy/AdvReac Type Severity Reaction Status Date / Time Penicillins [PENICILLINS] Allergy Severe HIVES/ANAPH Verified 11/22/21 07:58 YLAXIS bee venom protein (honey bee) Allergy Verified 11/22/21 07:58 venom-wasp Allergy Verified 11/22/21 07:58 Review of Systems Review of Systems ROS: Yes All systems reviewed with the patient and are negative except as otherwise documented Exam Vital Signs (past 8 hours): - 12/10/21 09:00 Temperature 97.6 F Pulse Rate 90 Respiratory Rate 16 Blood Pressure 120/88 Pulse Oximetry 98 Oxygen Delivery Method Room Air Oxygen Delivery Method Room Air Const General: cooperative, healthy appearing and comfortable Nutritional Appearance: average body habitus Orientation: alert, awake and oriented x3 HENMT Head: normal to inspection, normocephalic and atraumatic Ears: hearing grossly normal bilaterally Mouth: oral mucosae normal Eyes General: appearance normal, both eyes and all related structures Sclera: sclerae normal Neck Neck: trachea midline Chest Chest: normal inspection of the chest Resp Effort & Inspection: normal respiratory effort and able to speak in complete sentences Cardio Rate: regular rate Rhythm: regular rhythm GI Inspection: normal to inspection Palpation: soft Skin General: no rashes or lesions noted and turgor normal Neuro General: patient alert, patient awake and patient oriented x3 Extrem General: normal to inspection Psych Appearance: grossly normal Judgment: judgment good Assessment & Plan Assessment & Plan narrative: Impression: Colon cancer screening due to self history of colon polyps and family history of colon cancer Plan: Colonoscopy with moderate sedation COVID-19 COVID-19 status: Negative Time Spent With Patient Critical Care time: I spent a total of [] minutes of critical care time on this patient's care today; this time is exclusive of procedural time.
[2021-12-10] MEDS: MIDAZOLAM 5 MG/5 ML VIAL IV (11:15)
[2021-12-10] MEDS: fentaNYL 100 MCG/2 ML INJ 125 MCG IV (11:15)
--- NOTE | 2021-12-10 11:21 | PM.OP.COLON ---
Operative Date/Time/Diagnoses Date of procedure: 12/10/21 Time of procedure: 11:21 Pre-op diagnosis: Self history colon polyps, family history colon cancer Post-op diagnosis: same Procedure & Clinicians Study performed: Colonoscopy with moderate sedation Same procedure as scheduled: Yes Indications: Family history colon cancer, self history colon polyps Surgeon: Georgiana Elena Procedure Notes Procedure in detail: Preop diagnosis: Family history of colon Cancer, self history colon polyps Postop diagnosis: Same Operative procedure: Colonoscopy with moderate sedation Surgeon: Jeanette Elena MD Anesthetic: Fentanyl 125 mcg Versed 5 mg Findings: Normal colonoscopy. No polyps or diverticula identified Procedure: Patient placed in lateral position. Rectal exam performed showing normal tone no masses. Colonoscope inserted into the rectum advanced to ileocecal valve with minimal difficulty. Insufflation extraction scope and the above findings. Retroflex was included in the rectum. Impression: Normal colonoscopy. No evidence of polyps or diverticuli. Plan: Repeat colonoscopy 5 years Sedation minutes: 13 Specimen(s): none sent Complications: none Post-procedure Recommendations: Colonoscopy in 5 years Follow up: as needed Disposition: PACU
[2021-12-10 11:27] VITALS: BP 129/74; PULSE 78; RESP 16; TEMP 36.8; O2SAT 100
[2021-12-10 11:32] VITALS: BP 109/74; PULSE 73; RESP 16; O2SAT 100
[2021-12-10 11:41] VITALS: BP 126/76; PULSE 68; RESP 16; O2SAT 98
[2021-12-10 11:55] VITALS: BP 127/70; PULSE 70; RESP 16; O2SAT 97
== END 2021-12-10 11:55 | disposition home or self-care (01) ==
PROVIDERS: Family Provider Nurse Practitioner Family; PCP Nurse Practitioner; Referring Provider Surgery; Visit Provider Surgery
PROC: 0DJD8ZZ Inspection of Lower Intestinal Tract, Via Natural or Artificial Opening Endoscopic (ICD-10-PCS; CPT 45378; principal; 2021-12-10 10:15)
DX: Z12.11 Encounter for screening for malignant neoplasm of colon (principal); Z80.0 Family history of malignant neoplasm of digestive organs
CPT/HCPCS: 45378; 99152; J2250; J3010

== ENCOUNTER → 2022-02-24 09:45 | Outpatient (CLI) | payer OTHER, SELFPAY ==
[2022-02-24 11:13] LABS: Influenza A - CEPHEID Flu A POSITIVE (NEGATIVE); Influenza B - CEPHEID Flu B NEGATIVE (NEGATIVE); Respiratory Syncytial Virus Negative (Negative)
[2022-02-24 11:16] LABS: COVID-19 CEPHEID 4-PLEX PCR Negative (Negative)
== END ==
PROVIDERS: Family Provider Nurse Practitioner Family; PCP Nurse Practitioner; Visit Provider Registered Nurse
DX: R05.9 Cough, unspecified (principal)
CPT/HCPCS: 0241U

== ENCOUNTER → 2022-04-01 15:21 | Outpatient (CLI) | payer OTHER, SELFPAY ==
--- NOTE | 2022-04-01 15:25 | DI.RAD.S_ITS ---
PROCEDURE: XR LUMBAR SPINE MIN 4V INDICATIONS: BACK PAIN TECHNIQUE: 5 views of the lumbar spine acquired, including oblique views. COMPARISON: [facility], CR, XR LUMBAR SPINE 2-3V, 08/21/2019, 13:48. FINDINGS: Bones: 5 nonrib-bearing vertebrae are present. There is normal bony alignment. No vertebral body compression fractures. No suspicious bony lesions. Soft tissues: Overlying bowel gas pattern is normal. No suspicious soft tissue calcifications. Oblique views: No pars defects. IMPRESSION: Unremarkable radiographic examination of lumbar spine. No gross pars defects. Dictated by: Bartolo Joseph M.D. on 04/01/2022 at 15:55 Approved by: Bartolo Joseph M.D. on 04/01/2022 at 15:59
== END ==
PROVIDERS: Family Provider Nurse Practitioner Family; PCP Nurse Practitioner; Referring Provider Physical Medicine & Rehabilitation; Visit Provider Physical Medicine & Rehabilitation
DX: M54.30 Sciatica, unspecified side (principal); M54.50 Low back pain, unspecified
CPT/HCPCS: 72110

== ENCOUNTER → 2022-06-27 11:52 | Outpatient (CLI) | payer OTHER, SELFPAY ==
--- NOTE | 2022-06-27 11:53 | DI.RAD.S_ITS ---
PROCEDURE: XR CHEST 2V INDICATIONS: ongoing cough, wheezing TECHNIQUE: 2 views of the chest were acquired. COMPARISON: [facility], , XR CHEST 2V, 08/07/2019, 11:21. FINDINGS: Surgical changes and devices: None. Lungs and pleura: Lungs are clear. No pleural effusions or pneumothorax. Mediastinum: Mediastinal contours are normal. Heart size is normal. Bones and chest wall: No suspicious bony abnormalities. Soft tissues appear unremarkable. IMPRESSION: Stable radiographic evaluation of the chest without acute cardiopulmonary abnormalities or focal airspace disease. Dictated by: Mickey Aguilar M.D. on 06/27/2022 at 12:38 Approved by: Mickey Aguilar M.D. on 06/27/2022 at 12:39
== END ==
PROVIDERS: Family Provider Nurse Practitioner Family; PCP Nurse Practitioner; Referring Provider Nurse Practitioner; Visit Provider Nurse Practitioner
DX: R05.9 Cough, unspecified (principal); R06.2 Wheezing
CPT/HCPCS: 71046

== ENCOUNTER → 2023-02-20 16:13 | Outpatient (CLI) | payer OTHER, SELFPAY ==
--- NOTE | 2023-02-20 16:14 | DI.US.S_ITS ---
PROCEDURE: US PELVIC COMPLETE INDICATIONS: Frequent heavy periods TECHNIQUE: Real-time scanning was performed of the pelvic organs, with image documentation. Additional endovaginal scanning was necessary due to incomplete visualization of the adnexal and endometrial structures by transabdominal scanning. COMPARISON: [facility], CT, CT ABDOMEN PELVIS W CON, 03/01/2018, 16:36. NM, NM PET CT FUSION WHOLE BODY, 01/20/2021, 9:28. FINDINGS: Uterus: Uterus is anteverted and normal in size at 7.8 x 3.7 x 4.5 cm. The myometrium is heterogeneous. The endometrium measures 6 mm combined thickness. There is a 1.7 x 1.2 x 2.2 cm intramural fibroid in the anterior uterine wall at midline with calcification. Ovaries: Ovaries are not visualized. Other: No pathologic free abdominal or pelvic fluid. IMPRESSION: 1. A 1.7 x 1.2 x 2.2 cm calcified uterine fibroid in the anterior uterine wall at midline. 2. Mild medium is heterogeneous, which could indicate adenomyosis. 3. Ovaries are not visualized on ultrasound. 4. No pathological free-fluid in cul-de-sac or adnexa. We strive to produce accurate, complete, and clear reports of imaging services. To assist us in improving patient care, this report was composed using standard report templates and voice recognition software. Therefore, it may contain abnormal punctuation, insertions and/or omissions. Occasional wrong-word or sound-alike substitutions may occur. Though we review the report and make efforts to correct it, we do recommend that the report be read carefully in proper context to recognize any text inaccuracies. Dictated by: Anamika Benson M.D. on 02/20/2023 at 17:09 Approved by: Anamika Benson M.D. on 02/20/2023 at 20:17
== END ==
PROVIDERS: Family Provider Nurse Practitioner Family; PCP Nurse Practitioner; Referring Provider Obstetrics & Gynecology; Visit Provider Obstetrics & Gynecology
DX: N92.1 Excessive and frequent menstruation with irregular cycle (principal); D25.1 Intramural leiomyoma of uterus
CPT/HCPCS: 76830; 76856

== ENCOUNTER → 2023-08-03 11:51 | Outpatient (CLI) | payer OTHER, SELFPAY ==
[2023-08-03 14:01] LABS: Add Manual Diff / Slide Review NO; Basophils Absolute Auto 100 /uL (0-100); Basophils Percent Auto 0.6 % (0-2); Eosinophils Absolute Auto 100 /uL (0-450); Eosinophils Percent Auto 1.6 % (2-4); Hematocrit 40.1 % (36-46); Hemoglobin 13.4 g/dL (12.0-16.0); Lymphocytes Absolute Auto 2300 /uL (1100-4500); Lymphocytes Percent Auto 25.9 % (25-40); Mean Corpuscular HGB Conc 33.6 % (30-36); Mean Corpuscular Hemoglobin 31.6 PG (26-34); Mean Corpuscular Volume 94.1 fL (80-100); Monocytes Absolute Auto 800 /uL (0-900); Monocytes Percent Auto 8.4 % (3-14); Neutrophils Absolute Auto 5700 /uL (1500-7000); Neutrophils Percent Auto 63.5 % (50-75); Platelet Count 334 X10^3/uL (150-400); Red Blood Cell Count 4.26 X10^6/uL (4.0-5.2)
[2023-08-03 14:21] LABS: HEMOLYSIS < 15 (0-50); Iron 97 ug/dL (37-170)
[2023-08-03 14:32] LABS: Percent Iron Saturation 28 % (15-50); Total Iron Binding Capacity 344 ug/dL (265-497); Transferrin 269 mg/dL (206-381)
[2023-08-03 14:39] LABS: Free T4, Direct Thyroxine 1.27 ng/dL (0.78-2.19)
[2023-08-03 14:53] LABS: Thyroid Stimulating Hormone 1.28 uIU/mL (0.47-4.68)
[2023-08-03 19:32] LABS: Follicle Stimulating Hormone 21.8 mIU/mL
== END ==
PROVIDERS: Family Provider Nurse Practitioner Family; PCP Nurse Practitioner; Referring Provider Nurse Practitioner; Visit Provider Nurse Practitioner
DX: N91.2 Amenorrhea, unspecified (principal); N92.0 Excessive and frequent menstruation with regular cycle
CPT/HCPCS: 36415; 83001; 83540; 83550; 84439; 84443; 84481; 85025

== ENCOUNTER → 2024-05-30 07:51 | Outpatient (CLI) | payer OTHER, SELFPAY ==
[2024-05-30 08:44] LABS: Hematocrit 38.2 % (36-46); Hemoglobin 12.7 g/dL (12.0-16.0); Mean Corpuscular HGB Conc 33.2 % (30-36); Mean Corpuscular Hemoglobin 30.9 PG (26-34); Mean Corpuscular Volume 93.2 fL (80-100); Platelet Count 359 X10^3/uL (150-400); Red Cell Distribution Width 14.3 % (11.6-14.8); White Blood Cell Count 8.2 X10^3/uL (4.5-11.0)
[2024-05-30 08:56] LABS: Hemoglobin A1C% w Est Avg Glu 5.3 % (4.0-6.0)
[2024-05-30 09:21] LABS: Albumin 4.3 g/dL (3.5-5.0); Albumin Globulin Ratio 1.7 (1.0-2.8); Alkaline Phosphatase 60 U/L (38-126); BUN Creatinine Ratio 15.4 (6-22); Bilirubin Total 0.2 mg/dL (0.2-1.3); Blood Urea Nitrogen 14 mg/dL (7-17); Calcium 9.2 mg/dL (8.4-10.2); Carbon Dioxide 26 mmol/L (22-32); Chloride 105 mmol/L (98-107); Cholesterol 166 mg/dL (140-199); Estimated Glomerular Filt Rate > 60 mL/min (>60); Globulin 2.5 g/dL (1.7-4.1); Glucose 107 mg/dL (70-100); HDL Cholesterol 66 mg/dL (40-60); HEMOLYSIS < 15 (0-50); LDL Cholesterol Calculated 84 mg/dL (<100); Potassium 4.4 mmol/L (3.4-5.1); Sodium 139 mmol/L (137-145); Total Protein 6.8 g/dL (6.3-8.2); Triglycerides 81 mg/dL (35-150)
[2024-05-30 09:37] LABS: TSH w/ Reflex to FT4 2.09 uIU/mL (0.47-4.68)
[2024-05-30 09:41] LABS: Alanine Aminotransferase 24 IU/L (<35); Aspartate Aminotransferase 27 IU/L (14-36)
[2024-05-30 09:54] LABS: Estradiol, Total 11.8 pg/mL
== END ==
PROVIDERS: Family Provider Nurse Practitioner Family; PCP Registered Nurse Diabetes Educator; Referring Provider Registered Nurse Diabetes Educator; Visit Provider Registered Nurse Diabetes Educator
DX: Z00.00 Encounter for general adult medical examination without abnormal findings (principal); N91.2 Amenorrhea, unspecified; R73.01 Impaired fasting glucose
CPT/HCPCS: 36415; 80053; 80061; 82670; 83001; 83036; 84443; 85027